=== PATIENT | male | born 2000 | race American Indian/Alaskan Native ===

== ENCOUNTER 2021-04-26 16:12 | Emergency (ER) | payer MEDICAID ==
[2021-04-26 17:42] VITALS: BP 131/84
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
== END 2021-04-26 18:15 | disposition home or self-care (01) ==
LOC: ED 16:12
DX: Z00.00 Encounter for general adult medical examination without abnormal findings (principal)
CPT/HCPCS: 99281